=== PATIENT | female | born 1970 | race Caucasian/White ===

== ENCOUNTER 2016-08-15 11:57 | Emergency (ER) | payer BC ==
[~2016-08-15] VITALS: Ht 157.5 cm; Wt 91.5 kg
[~2016-08-15 11:57] MED LIST: PRENATAL VIT
[2016-08-15 12:11] VITALS: Ht 157.5 cm; Wt 91.5 kg
[2016-08-15] MEDS ORDERED: IBUP-1542 PO (14:12)
[2016-08-15] MEDS ORDERED: PRED20TA PO (14:12)
--- NOTE | 2016-08-15 14:23 | ERD ---
ER Documentation Chief Complaint Date/Time DATE: 08/15/16 TIME: 14:14 Chief Complaint RIGHT SIDED JAW PAIN HPI 45-year-old female presents with right-sided jaw swelling that began earlier today. She states it began after she ate a new snack and that she began having some swelling on the right side of her cheek and jaw but she states the symptoms are now resolving. She denies any difficulty breathing, eating, drinking, swallowing. No signs of respiratory distress. No swelling of her lips or tongue. Pain is mild to moderate throbbing over TMJ. No rash. ROS All systems reviewed and are negative except as per history of present illness. Medications Home Meds Active Scripts Prednisone* (Prednisone*) 20 Mg Tab, 40 MG PO DAILY for 4 Days, TAB Prov:JAMI CHAVEZ PA-C 08/15/16 Ibuprofen* (Motrin*) 600 Mg Tab, 600 MG PO Q6, #30 TAB Prov:JAMI CHAVEZ PA-C 08/15/16 Reported Medications [ Vit] No Conflict Check 09/05/09 Allergies Allergies: Coded Allergies: Penicillins (Verified Allergy, Mild, 09/05/09) PMhx/Soc History of Surgery: No Anesthesia Reaction: No Hx Neurological Disorder: No Hx Respiratory Disorders: No Hx Cardiac Disorders: No Hx Psychiatric Problems: No Hx Miscellaneous Medical Probl: No Hx Alcohol Use: No Hx Substance Use: No Hx Tobacco Use: No FmHx Family History: No diabetes Physical Exam Vitals Vital Signs Date Time Temp Pulse Resp B/P Pulse Ox O2 Delivery O2 Flow Rate FiO2 08/15/16 12:11 98.5 77 18 123/77 99 Physical Exam General: well developed, well nourished, alert, nontoxic, no distress Head: normocephalic, atraumatic Eyes: PERRL, normal conjunctiva Neck: Supple, nontender, no lymphadenopathy, no midline tenderness Oropharynx: no tonsilar erythema or edema, uvula midline, no exudates, no kissing tonsils, no drooling, no swelling of her lips or tongue, no tenderness over the TMJ, no clicking or crepitus, no oral swelling Respiratory: Clear to auscaultation bilaterally, speaks in full sentences, no use of accesory muscles or labored breathing, no rales, ronchi, or wheezing Cardiovascular: RRR, No murmurs Procedures/MDM Patient states she has swelling of the right side of her cheek and jaw after eating a snack today. Her symptoms are now resolved and her vitals are normal she is well-appearing. There is no signs of respiratory distress, swelling of her lips or tongue, or anaphylaxis. This is most likely TMJ versus mild allergic reaction. She is given a prescription for ibuprofen and prednisone. Recommended this patient follow up with her primary care doctor within 48 hours or return to the emergency room for any worsening of symptoms. However this time I do believe there is suitable for outpatient management. I answered all their questions and they agreed with the plan and were discharged home. Departure Diagnosis: Primary Impression: Jaw pain Condition: Stable Patient Instructions: Dental Pain Additional Instructions: Call your primary care doctor TOMORROW for an appointment during the next 1-2 days.See the doctor sooner or return here if your condition worsens before your appointment time. JAMI CHAVEZ PA-C Aug 15, 2016 14:23
== END 2016-08-15 14:38 | disposition home or self-care (01) ==
LOC: FTE 11:57
DX: R68.84 Jaw pain (principal)
CPT/HCPCS: 99283